=== PATIENT | female | born 1980 ===

== ENCOUNTER 2018-07-04 09:53 | Emergency (ER) | payer OTHER ==
[2018-07-04 09:59] VITALS: BMI 31.8
[2018-07-04 10:06] VITALS: O2SAT 100
--- NOTE | 2018-07-04 10:31 | C.PDOC ---
History Of Present Illness 38 y/o female with a PMHx of migraines and cervical spine arthritis presents to the ED complaining of dizziness that began this morning at 5:00AM. She reports associated nausea and a mild frontal headache, described as pressure-like. Patient notes dizziness is similar to lightheadedness, but admits to intermittent room spinning, that worsens with change in position and moving her head up and down. She had a similar episode once before when having a migraine 2 years ago. LMP 06/03/18. Otherwise patient denies any fever, chills, visual changes, diplopia, neck stiffness, weakness, numbness, paresthesias, vomiting, abdominal pain, back pain, chest pain, SOB, syncope, palpitations, diaphoresis, vaginal bleeding, vaginal discharge, or urinary symptoms. Time Seen by Provider: 07/04/18 10:17 Chief Complaint (Nursing): Dizziness/Lightheaded History Per: Patient History/Exam Limitations: no limitations Onset/Duration Of Symptoms: Hrs Current Symptoms Are (Timing): Still Present Seizure Or Post-ictal Symptoms: None Possible Causative Factor(s): Lightheaded W/Change In Head Position Past Medical History Reviewed: Historical Data, Nursing Documentation, Vital Signs Vital Signs: Last Vital Signs Temp 97.7 F 07/04/18 09:59 Pulse 67 07/04/18 09:59 Resp 18 07/04/18 09:59 BP 117/73 07/04/18 09:59 Pulse Ox 100 07/04/18 09:59 - Medical History PMH: Arthritis, Migraine Surgical History: No Surg Hx Family History: States: No Known Family Hx - Social History Hx Alcohol Use: No Hx Substance Use: No - Immunization History Hx Tetanus Toxoid Vaccination: No Hx Influenza Vaccination: No Hx Pneumococcal Vaccination: No Review Of Systems Except As Marked, All Systems Reviewed And Found Negative. Constitutional: Negative for: Fever, Chills Eyes: Negative for: Vision Change ENT: Negative for: Nose Congestion, Throat Pain Cardiovascular: Negative for: Chest Pain, Palpitations, Light Headedness Respiratory: Negative for: Cough, Shortness of Breath Gastrointestinal: Negative for: Nausea, Vomiting, Abdominal Pain, Diarrhea, Constipation Genitourinary: Negative for: Dysuria, Frequency, Vaginal Discharge, Vaginal Bleeding Musculoskeletal: Negative for: Neck Pain, Back Pain Skin: Negative for: Rash Neurological: Positive for: Headache, Dizziness. Negative for: Weakness, Numbness, Change in Speech, Seizures, Altered Mental Status Physical Exam - Physical Exam Appears: Well, Non-toxic, No Acute Distress Skin: Normal Color, Warm, No Rash Head: Atraumatic, Normacephalic Eye(s): bilateral: Normal Inspection (no nystagmus), PERRL, EOMI Nose: Normal Oral Mucosa: Moist Neck: Normal ROM, Supple, Other (No rigidity) Chest: Symmetrical Cardiovascular: Rhythm Regular, No Murmur Respiratory: Normal Breath Sounds, No Accessory Muscle Use, Other (No respiratory distress) Gastrointestinal/Abdominal: Soft, No Tenderness, No Distention Back: Normal Inspection, No CVA Tenderness Extremity: Normal ROM, No Calf Tenderness, Capillary Refill (<2s) Extremity: Bilateral: Atraumatic, Normal Color And Temperature, Normal ROM Pulses: Right Radial: Normal, Left Femoral: Normal Neurological/Psych: Oriented x3, Normal Speech, Normal Cognition, Normal Cranial Nerves, No Cerebellar Signs, Normal Motor, Normal Sensation Gait: Steady (without ataxia) ED Course And Treatment - Laboratory Results Result Diagrams: 07/04/18 11:09 07/04/18 11:09 ECG: Interpreted By Me, Viewed By Me (and ED attending Dr. Jaramillo) ECG Rhythm: Sinus Rhythm Interpretation Of ECG: Left axis deviation. Normal intervals. No STEMI. Nonspecific ST/T wave changes Rate From EC (bpm) O2 Sat by Pulse Oximetry: 100 (RA) Pulse Ox Interpretation: Normal - Other Rad CXR X-Ray: Read By Radiologist Interpretation: Accession No. : [id number]. Patient Name / ID : ROMÁN RIVERS / [id number]. Exam Date : 07/04/2018 10:58:55 ( Approved ). Study Comment : Sex / Age : F / 38Y. Creator : omer doguherty. Dictator : Joycelyn Weems MD. Five Roll Refiner Batch Mixer : Jewel Bearing Maker : Joycelyn Weems MD. Approver2 : Report Date : 07/04/2018 11:01:21. My Comment : . Date of service: 07/04/2018. HISTORY: Dizziness. COMPARISON: No prior. FINDINGS: LUNGS: The lungs are well inflated and clear. PLEURA: No pleural effusions or pneumothorax. CARDIOVASCULAR: The heart is normal in size. No aortic atherosclerotic calcifications present. OSSEOUS STRUCTURES: Within normal limits for the patient's age. VISUALIZED UPPER ABDOMEN: Normal. OTHER FINDINGS: None. IMPRESSION: No active pulmonary disease. - CT Scan/US Head CT Other Rad Studies (CT/US): Read By Radiologist, Radiology Report Reviewed CT/US Interpretation: Accession No. : [id number]. Patient Name / ID : ROMÁN RIVERS / [id number]. Exam Date : 07/04/2018 11:17:19 ( Approved ). Study Comment : Sex / Age : F / 38Y. Creator : Deena King. Dictator : Barby Shoemaker MD. Five Roll Refiner Batch Mixer : Jewel Bearing Maker : Barby Shoemaker MD. Approver2 : Report Date : 07/04/2018 11:23:35. My Comment : . Date of service: 07/04/2018. PROCEDURE: CT HEAD WITHOUT CONTRAST. HISTORY: headache, dizziness. COMPARISON: None available. TECHNIQUE: Axial computed tomography images were obtained through the head/brain without intravenous contrast. Radiation dose: Total exam DLP = 1095.85 mGy-cm. This CT exam was performed using one or more of the following dose reduction techniques: Automated exposure control, adjustment of the mA and/or kV according to patient size, and/or use of iterative reconstruction technique. FINDINGS: Streak artifact limits evaluation of the skull base. HEMORRHAGE: No intracranial hemorrhage. BRAIN: No mass effect or edema. No atrophy or chronic microvascular ischemic changes. VENTRICLES: No hydrocephalus. CALVARIUM: Unremarkable. PARANASAL SINUSES: Unremarkable as visualized. No significant inflammatory changes. MASTOID AIR CELLS: Unremarkable as visualized. No inflammatory changes. OTHER FINDINGS: None. IMPRESSION: No acute intracranial pathology identified. Medical Decision Making Medical Decision Making: Impression: Dizziness, Headache, Known hx of migraines Initial Plan: - EKG - Chest x-ray - Blood work w/ cardiac enzymes and coags - Urinalysis - Flu swab - Orthostatics - IV fluids x 1 bolus - 25 mg PO Meclizine - 4 mg IV Zofran - CT Head CT is negative. CXR shows no acute disease. EKG shows LAD, NSR, borderline LVH; reviewed with ED attending Dr. Jaramillo, who agrees with disposition of outpatient followup. Labs reviewed. UA shows +leuks, WBC, and bacteria, otherwise unremarkable. Will treat patient for UTI with PO Keflex. Orthostatics positive for increase in HR with standing. All results discussed with patient in detail. 12:30 On reassessment patient reports resolution of symptoms, and feels comfortable going home. Will discharge patient with Rx for Meclizine and Keflex. Advised to follow up with PMD, cardiology, and neurology n 1-2 days. Diagnostic testing results and plan of care discussed with patient. Strict instructions given regarding prescription use, importance of followup, and signs/symptoms to return to ER including syncope, SOB, chest pain, vision changes, or any other new/worsening symptoms. Pt verbalized understanding of discussion. Patient is A&Ox3, ambulating with steady gait, with vital signs stable for discharge. Translation provided by nursing and significant other. Disposition Counseled Patient/Family Regarding: Diagnosis, Need For Followup, Rx Given - Disposition Referrals: [facility] [Outside] Kamar Valles MD [Staff Provider] - Chi Smith MD [Staff Provider] - Disposition: HOME/ ROUTINE Disposition Time: 12:50 Condition: GOOD Additional Instructions: Keflex cada 12 horas leah 7 stout para la ITU Meclizine diariamente segn sea necesario para el mareo. Aumentar los fluidos Seguimiento con neurologa en 2 stout. Seguimiento con cardilogo dentro de 2 stout. Seguimiento con primaria / clnica dentro de 2 stout. Regrese a la anibal de emergencias con cualquier sntoma nuevo o que empeore Prescriptions: Cephalexin [Keflex] 500 mg PO Q12 7 Days #14 capsule Meclizine [Meclizine*] 25 mg PO DAILY PRN #5 tab PRN Reason: Dizziness Instructions: Vertigo (a Type of Dizziness), Urinary Tract Infection, Adult (DC) Forms: General Discharge Instructions, [facility] (Lib[place]), Work Excuse - POA Present On Arrival: None - Clinical Impression Clinical Impression: Dizziness, UTI (urinary tract infection), Headache - PA / MISCELLANEOUS MACHINE OPERATOR / Resident Statement MD/DO has reviewed & agrees with the documentation as recorded. - Scribe Statement The provider has reviewed the documentation as recorded by the Teresa Torres All medical record entries made by the Teresa were at my direction and personally dictated by me. I have reviewed the chart and agree that the record accurately reflects my personal performance of the history, physical exam, medical decision making, and the department course for this patient. I have also personally directed, reviewed, and agree with the discharge instructions and disposition.
[2018-07-04] MEDS ORDERED: Sodium Chloride 0.9% 1,000 ML IV ONE (10:33)
--- NOTE | 2018-07-04 11:05 | RAD ---
Date of service: 07/04/2018 HISTORY: Dizziness COMPARISON: No prior. FINDINGS: LUNGS: The lungs are well inflated and clear. PLEURA: No pleural effusions or pneumothorax. CARDIOVASCULAR: The heart is normal in size. No aortic atherosclerotic calcifications present. OSSEOUS STRUCTURES: Within normal limits for the patient's age. VISUALIZED UPPER ABDOMEN: Normal. OTHER FINDINGS: None. IMPRESSION: No active pulmonary disease.
[2018-07-04 11:06] LABS: SQUAMOUS EPITHIAL 6 /hpf (0-5); URINE BACTERIA MOD (<OCC); URINE BILIRUBIN NEGATIVE (NEGATIVE); URINE BLOOD NEGATIVE (NEGATIVE); URINE CLARITY Hazy (Clear); URINE COLOR Straw (YELLOW); URINE GLUCOSE (UA) NORMAL (Normal); URINE LEUKOCYTE ESTERASE 2+ Leu/uL (Negative); URINE PROTEIN NEGATIVE (NEGATIVE); URINE UROBILINOGEN NORMAL mg/dL (0.2-1.0)
[2018-07-04 11:13] LABS: BASO # 0.1 K/uL (0.0-0.2); BASO % 0.7 % (0.0-2.0); EOS # 0.1 K/uL (0.0-0.7); EOS % 1.3 % (0.0-4.0); HEMOGLOBIN 12.8 g/dL (11.0-16.0); LYMPH # 2.7 K/uL (1.0-4.3); LYMPH % 31.4 % (20.0-40.0); MEAN CELL VOLUME 89.3 fL (81.0-99.0); MEAN CORPUSCULAR HEMOGLOBIN 30.8 pg (27.0-31.0); MEAN CORPUSCULAR HGB CONC 34.5 g/dL (33.0-37.0); MEAN PLATELET VOLUME 7.8 fL (7.2-11.7); MONO # 0.5 K/uL (0.0-0.8); MONO % 5.8 % (0.0-10.0); NEUT # 5.2 K/uL (1.8-7.0); NEUT % 60.8 % (50.0-75.0); RBC 4.17 Mil/uL (3.80-5.20); RED CELL DISTRIBUTION WIDTH 12.5 % (11.5-14.5); WHITE BLOOD COUNT 8.6 K/uL (4.8-10.8)
[2018-07-04 11:23] LABS: INR 1.1; PROTHROMBIN TIME 11.7 SECONDS (9.7-12.2)
[2018-07-04 11:26] LABS: BARBITURATES, UR NEGATIVE (NEGATIVE); BENZODIAZEPINES, UR NEGATIVE (NEGATIVE); OPIATES, UR NEGATIVE (NEGATIVE); PHENCYCLIDINE, UR NEGATIVE (NEGATIVE)
[2018-07-04 11:26] LABS: ALB/GLOB RATIO 1.5 (1.0-2.1); ALBUMIN 4.7 g/dL (3.5-5.0); ALT/SGPT 42 U/L (9-52); AST/SGOT 30 U/L (14-36); BLOOD UREA NITROGEN 11 mg/dL (7-17); CALCIUM 9.6 mg/dl (8.6-10.4); GFR NON-AFRICAN AMERICAN > 60
[2018-07-04] MEDS ORDERED: Sodium Chloride 0.9% 1,000 ML ONE (11:34)
--- NOTE | 2018-07-04 11:41 | CT ---
Date of service: 07/04/2018 PROCEDURE: CT HEAD WITHOUT CONTRAST. HISTORY: headache, dizziness COMPARISON: None available. TECHNIQUE: Axial computed tomography images were obtained through the head/brain without intravenous contrast. Radiation dose: Total exam DLP = 1095.85 mGy-cm. This CT exam was performed using one or more of the following dose reduction techniques: Automated exposure control, adjustment of the mA and/or kV according to patient size, and/or use of iterative reconstruction technique. FINDINGS: Streak artifact limits evaluation of the skull base. HEMORRHAGE: No intracranial hemorrhage. BRAIN: No mass effect or edema. No atrophy or chronic microvascular ischemic changes. VENTRICLES: No hydrocephalus. CALVARIUM: Unremarkable. PARANASAL SINUSES: Unremarkable as visualized. No significant inflammatory changes. MASTOID AIR CELLS: Unremarkable as visualized. No inflammatory changes. OTHER FINDINGS: None. IMPRESSION: No acute intracranial pathology identified.
[2018-07-04 12:49] VITALS: BP 108/72; PULSE 59; RESP 20; TEMP 98
--- NOTE | 2018-07-05 17:56 | CARD ---
APPROVED REPORT Date of service: 07/04/2018 EKG Measurement Heart [id number] <Conclusion> Normal sinus rhythm Left axis deviation RSR' or QR pattern in V1 suggests right ventricular conduction delay Minimal voltage criteria for LVH, may be normal variant Abnormal ECG
== END 2018-07-04 13:04 | disposition home or self-care (01) ==
LOC: C.ER 09:53
DX: R42 Dizziness and giddiness (principal); N39.0 Urinary tract infection, site not specified; R51 Headache
CPT/HCPCS: 70450; 71045; 80053; 80324; 80345; 80346; 80349; 80353; 80358; 80361; 81001; 81025; 83735; 83992; 84100; 84484; 85025; 85610; 85730; 87086; 87804; 93005; 96361; 96374; 99285; J2405; J7030